=== PATIENT | female | born 1950 | race Two or more races ===

== ENCOUNTER 2018-07-23 11:25 | Emergency (ER) | payer SELFPAY ==
[2018-07-23 11:44] VITALS: Ht 157.5 cm
[2018-07-23 12:34] VITALS: BP 154/99
== END 2018-07-23 12:34 | disposition home or self-care (01) ==
LOC: ED 11:25
DX: R05 Cough (principal); I10 Essential (primary) hypertension; Z86.73 Personal history of transient ischemic attack (TIA), and cerebral infarction without residual deficits; Z98.890 Other specified postprocedural states

== ENCOUNTER 2018-08-06 11:23 | Emergency (ER) | payer SELFPAY ==
[~2018-08-06] VITALS: Ht 160 cm; Wt 88.0 kg
[2018-08-06 11:27] VITALS: Ht 160 cm; Wt 88.0 kg
[2018-08-06 13:48] VITALS: BP 141/78
== END 2018-08-06 13:48 | disposition home or self-care (01) ==
LOC: ED 11:23
DX: J98.01 Acute bronchospasm (principal); I10 Essential (primary) hypertension; Z86.73 Personal history of transient ischemic attack (TIA), and cerebral infarction without residual deficits; Z88.0 Allergy status to penicillin
CPT/HCPCS: J7512; J7613